=== PATIENT | male | born 1995 | race American Indian/Alaskan Native ===

== ENCOUNTER 2023-11-25 20:00 | Emergency (ER) | payer MEDICARE, MEDICAID, SELFPAY ==
[2023-11-25 20:01] VITALS: BP 142/104; PULSE 71; RESP 16; TEMP 36.6; O2SAT 100; BMI 23.1
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
[2023-11-25] MEDS: Haloperidol Lactate 5 MG/ML Vial IM (20:46)
[2023-11-25] MEDS: DiphenhydrAMINE 50 MG/ML Syringe 25 MG IM (20:46)
[2023-11-25] MEDS: Lorazepam 2 MG/ML WCH Syringe IM (20:47)
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
[2023-11-25 21:40] LABS: Alcohol, Blood (Medical)-Serum < 3.0 mg/dL
[2023-11-25 21:45] LABS: ALB/GLOB Ratio 1.5 RATIO (0.9-2.4); AST(SGOT) 22 U/L (15-37); Alanine Aminotransfer ALT/SGPT 29 U/L (16-61); Albumin, Serum 4.3 g/dL (3.2-5.0); Alkaline Phosphatase 47 U/L (45-117); Anion Gap 11 (5-15); BUN 13 mg/dL (7-18); BUN/Creat Ratio 14.5 RATIO (10-20); Calcium,Total 9.4 mg/dL (8.5-10.1); Chloride 108 mmol/L (98-107); EST Glomerular Filtration Rate 106 mL/min (>60); Est Glom Filt Rate - Afr Amer 128 mL/min (>60); Globulin 2.8 g/dL (2.2-4.2); Glucose 105 mg/dL (74-106); Potassium 3.5 mmol/L (3.5-5.1); Protein, Total 7.1 g/dL (6.4-8.2); Sodium Level 141 mmol/L (136-145)
[2023-11-25 21:46] VITALS: BP 100/80; PULSE 62; RESP 19; O2SAT 99
[2023-11-25 21:50] LABS: Absolute Lymphocyte Count 1.72 X10^3/uL (0.83-4.51); Absolute Neutrophil Count 3.4 X10^3/uL (2.0-7.7); Basophil# 0.02 X10^3/uL; Basophil% 0.4 % (0-1); Eosinophil# 0.09 X10^3/uL; Eosinophils% 1.6 % (0-5); Hematocrit 43.7 % (40-54); Hemoglobin 15.2 g/dL (13.0-16.5); Lymphocyte # 1.72 X10^3/ul (0.83-4.51); Lymphocyte % 30.4 % (19-41); Mean Corp Hgb Conc 34.8 g/dL (32-36); Mean Corpuscular Hgb 29.7 pg (27.0-32.0); Mean Corpuscular Volume 85.5 fL (80-94); Mean Platelet Vol. 9.4 fl (6.2-12.0); Monocyte# 0.44 X10^3/uL; Monocyte% 7.8 % (0-10); NRBC Flagged by Analyzer 0 % (0-5); Neutrophil # 3.37 X10^3/uL (2.7-7.7); Neutrophil % 59.6 % (47-70); Platelet Count 215 K/mm3 (150-450); RBC Distribution Width CV 11.9 % (11.6-14.6); RBC Distribution Width SD 37.1 fl (35.1-43.9); Red Blood Count 5.11 M/mm3 (4.6-6.2); White Blood Count 5.7 K/mm3 (4.4-11.0)
[2023-11-25 22:04] LABS: Amphetamine Urine VISTA NEGATIVE (<1000 ng/mL); Barbiturate Urine VISTA NEGATIVE (< 200 ng/mL); Benzodiazepine Urine VISTA NEGATIVE (< 200 ng/mL); Cocaine Urine VISTA NEGATIVE (< 300 ng/mL); Ecstacy Urine VISTA NEGATIVE (< 500 ng/mL); Methadone Urine VISTA NEGATIVE (< 300 ng/mL); PCP Urine VISTA NEGATIVE (< 25 ng/mL); THC Urine VISTA POSITIVE (< 50 ng/mL); Vista UDS pH Range 5
--- NOTE | 2023-11-25 22:39 | CT_ITS ---
STUDY: CT BRAIN WITHOUT CONTRAST REASON FOR EXAM: Male, 28 years old. History of Brain TUmor RADIATION DOSAGE (If Supplied By Facility): CTDIvol = ( 44.99 ) mGy, DLP = ( 796.11 ) mGycm TECHNIQUE: Transaxial CT imaging of the brain was performed without administration of intravenous contrast material. Individualized dose optimization techniques were used for this CT. COMPARISON: No relevant priors. FINDINGS: Normal soft tissue structures. Normal calvarium. Normal size ventricles and extra-axial spaces for the patient''s age. Normal white matter tracts of the cerebral hemispheres. Normal basal ganglia and thalami. Normal brainstem. Normal cerebellum. 4 cm rounded area of CSF attenuation within the floor the right temporal fossa likely consistent with a arachnoid cyst. Correlation with prior studies or MRI would be useful. There is no intracranial hemorrhage. There are no findings of an acute ischemic infarction. Normal visualized paranasal sinuses. CT/Brain/Head without Contrast IMPRESSION: Suspect 4 cm arachnoid cyst in the floor of the right temporal fossa and correlation with prior studies and/or MRI would be useful. Electronically Signed: Rick Titus MD at 23:05 EDT ,
[2023-11-25 23:00] VITALS: BP 105/80; PULSE 60; RESP 16; O2SAT 99
--- NOTE | 2023-11-25 23:14 | ED.RN ---
Out of restraints at 2250.
[2023-11-26 02:52] VITALS: BP 134/88; PULSE 82; RESP 19; TEMP 36.5; O2SAT 96
[2023-11-26] MEDS: Nicotine Polacrilex 2 MG GUM PO (05:23)
[2023-11-26 05:28] VITALS: BP 140/89; PULSE 64; RESP 16; TEMP 36.2; O2SAT 96
--- NOTE | 2023-11-26 07:33 | ED.RN ---
PT AWAKE, COOPERATIVE AT THIS TIME. OFFERED FOOD AND DRINK. REMINDED PT BREAKFAST WOULD BE COMING
--- NOTE | 2023-11-26 08:18 | NURSING ---
FAXED PINK SLIP TO [facility]
--- NOTE | 2023-11-26 09:22 | NURSING ---
ACCEPTED AT [facility] DR ELAINE SPENCER 2 S NURSE TO NURSE [phone]
--- NOTE | 2023-11-26 09:28 | NURSING ---
CALLED [facility], ETA IS 60 TO 75 MIN
[2023-11-26 10:00] VITALS: BP 138/82; PULSE 64; RESP 14; O2SAT 100
[2023-11-26] MEDS: OXcarbazepine 600 MG Tablet PO (10:14)
[2023-11-26] MEDS: Divalproex (ER) 500 MG Tablet PO (10:15)
[2023-11-26] MEDS: busPIRone 15 MG TABLET 30 MG PO (10:15)
[2023-11-26] MEDS: OLANZapine 2.5 MG Tablet PO (10:16)
[2023-11-26 10:58] VITALS: BP 138/82; PULSE 64; RESP 16; TEMP 36.6; O2SAT 99
== END 2023-11-26 11:01 ==
PROVIDERS: Emergency Provider Emergency Medicine; Visit Provider Emergency Medicine
DX: F20.9 Schizophrenia, unspecified (principal); F17.210 Nicotine dependence, cigarettes, uncomplicated; Z79.899 Other long term (current) drug therapy
CPT/HCPCS: 70450; 80053; 80307; 80320; 85025; 99284; G0480